=== PATIENT | female | born 1975 | race Caucasian/White ===

== ENCOUNTER 2017-12-05 23:50 | Emergency (ER) | payer BC ==
[2017-12-06] MEDS ORDERED: LACTATED RINGER'S 1000 ML INJ 1,000 ML IV SCH (00:22)
[2017-12-06 00:29] VITALS: BP 149/90; PULSE 100
[2017-12-06] MEDS ORDERED: TERBUTALINE INJ 1 MG/ML AMP SQ PRN (00:30)
--- NOTE | 2017-12-06 00:44 | PD ---
HPI Chief Complaint Contractions Date Seen: Dec 06, 2017 Time Seen: 00:32 Travel History International Travel<30 Days: No Contact w/Intl Traveler<30Days: No Known Affected Area: No History of Present Illness HPI 22-year-old black female previous [address] Eddy for care and complains of contractions that started earlier in the day [ her wedding day] and she presents in her wedding gown to OB ED complaining of contractions and pain, denies bleeding or leakage of fluid. heart rate tracing is reactive and she does appear to. Be duarte small amplitude contractions every 3-4 minutes patient has a history of hypertension with pregnancies she states that it's" superimposed preeclampsia "when she gets it and so therefore she will very likely is a Baseline chronic hypertension that does not require medicine when she is not . Her blood pressure now 140s over 90s and she states that is been lower than that normal through with a check it every time and discuss it when she sees Dr. Eddy. She denies any other symptoms no headache blurry vision visual changes or other symptoms no swelling Weeks Gestation: 29 Para: 2 : 4 History Obstetric History Obstetric History She had 1 vaginal delivery first baby then had a stat with second baby due to distress and she had hypertension with both those pregnancies Past Surgical History Narrative Surgical Social History Narrative Social History Yesterday was her day Alcohol Use: No Tobacco Use: No Substance Abuse: No Allergies-Medications (Allergen,Severity, Reaction): Uncoded Allergies: no known allergy (Allergy, Unknown, 12/06/17) Review of Systems General / Constitutional: No: Fever, Weight Gain, Chills, Other Eyes: No: Diploplia, Blurred Vision, Visual changes, Pain, Photophobia HENT: No: Headaches, Vertigo, Lightheadedness Cardiovascular: No: Irregular Rhythm, Chest Pain or Discomfort, Palpitations, Tachycardia, Syncope, Varicosities, Edema, Cyanosis Respiratory: No: Cough, Short of Breath, Other Gastrointestinal: Abdominal Pain, No: Nausea, Vomiting, Diarrhea Genitourinary: No: Decreased Urinary Output, Oliguria Musculoskeletal: No: Limited ROM, Weakness, Cramping, Edema, Pain Skin: No Rash, No Itching, No Dryness, No Lumps, No Change in Pigmentation, No Change in Nails, No Alopecia, No Lesions Neurologic: No: Weakness, Dizziness, Syncope, Focal Abnormalities, Coordination Problem, Headache, Slurred Speech, Seizures Psychiatric: No: Depression, Suicidal Ideations, Homicidal Ideation Endocrine: No: Heat Intolerance, Cold Intolerance, Polydipsia, Polyuria, Other Physical Exam Narrative GENERAL: Well-nourished, well-developed patient. SKIN: Warm and dry. HEAD: Normocephalic and atraumatic. EYES: No scleral icterus. No injection or drainage. ENT: No nasal drainage noted. Mucous membranes pink. Airway patent. NECK: Supple, trachea midline. No JVD. CARDIOVASCULAR: Regular rate and rhythm without murmurs, gallops, or rubs. RESPIRATORY: Breath sounds equal bilaterally. No accessory muscle use. BREASTS: Bilateral exam showed no masses , no retractions, no nipple discharge. ABDOMEN/GI: Abdomen soft, non-tender, bowel sounds present, no rebound, no guarding Gravid to [-29] weeks size Fundal Height: [29-] GENITOURINARY: External Genitalia: intact and normal in appearance BUS glands: [-] Cervix: [-post] Dilatation: [-closed] Effacement: [thick-] Station: [-3] Membranes: [intact ] Uterine Contractions: [-q 3-4 min] FHT's: Category: [1-] Baseline: [-133] Reactive: [R-] Variability: [mod-] Decels: [-none] EXTREMITIES: No cyanosis or edema. BACK: Nontender without obvious deformity. No CVA tenderness. NEUROLOGICAL: Awake and alert. Motor and sensory grossly within normal limits. Five out of 5 muscle strength in all muscle groups. Normal speech. Data Data Orders Orders Vital Signs (Adult) .ON ADMISSION (12/06/17 00:22) ^ Labor Status (12/06/17:22) Urinalysis - C+S If Indicated (12/06/17:22) ^ Non Stress Test (12/06/17:22) Fibronectin (12/06/17:22) Lactated Ringer's 1000 Ml Inj (Lr 1000 M (12/06/17 00:22) Ob/Psych Drug Screen, Urine (12/06/17:22) Terbutaline Inj (Brethine Inj) (12/06/17 00:30) Fentanyl Inj (Fentanyl Inj) (12/06/17 00:30) MDM Interpretation(s) Patient is a 42-year-old black female at 29 weeks previous 1 who presents complaining of contractions on the day of her wedding she noticed at the human resources operations specialist it was getting worse and her wedding green party made her come to the hospital in her wedding gown. She's had no leakage of fluid or bleeding. She has a history of hypertension with pregnancies :; pressures have been good with this however tonight it's 140 over 90s Diagnosis Diagnosis: Primary Impression: contractions Additional Impressions: Previous section Hypertension affecting in third trimester Disposition: 01 DISCHARGE HOME Condition: Stable Evan Bone II, MD Dec 06, 2017 00:44
[2017-12-06 01:05] LABS: BACTERIA, URINE RARE /hpf; BILIRUBIN, URINE NEG (NEG); BLOOD, URINE NEG (NEG); GLUCOSE,URINE 150 mg/dL (NEG); KETONE, URINE 40 mg/dL (NEG); MUCUS URINE MOD /lpf (OCC); NITRITE,URINE NEG (NEG); SQUAMOUS EPITHELIAL CELL URINE <1 /hpf (0-5); URINE COLOR YELLOW (YELLW/STRAW); URINE LEUKOCYTE ESTERASE NEG (NEG)
[2017-12-06 01:14] VITALS: BP 150/85; PULSE 100; RESP 18
[2017-12-06 01:31] VITALS: BP 141/84; PULSE 96; RESP 18
== END 2017-12-06 02:53 | disposition home or self-care (01) ==
LOC: HOBED 23:50
DX: O47.03 False labor before 37 completed weeks of gestation, third trimester (principal); O16.3 Unspecified maternal hypertension, third trimester; Z3A.29 29 weeks gestation of pregnancy
CPT/HCPCS: 80307; 81001; 82731; 96372; 96374; 99284; G0481; J3010; J3105; J7120

== ENCOUNTER 2017-12-14 09:51 | Inpatient (IN) | payer BC ==
[2017-12-14] VITALS (73 sets, daily range): BP systolic 124–173; BP diastolic 71–108; PULSE 77–117; RESP 16–18; TEMP 98.1–98.5
[~2017-12-14] VITALS: Ht 157.5 cm; Wt 75.0 kg
[2017-12-14] MEDS ORDERED: CALCIUM GLUCONATE 10% 1 GM/10 ML VIAL IV PUSH PRN (10:30)
[2017-12-14] MEDS ORDERED: SODIUM CHLORIDE 0.9% FLUSH 10 ML FLUSH IV FLUSH PRN (10:30)
--- NOTE | 2017-12-14 10:37 | HHI.HP ---
HPI Chief Complaint Severe headache high blood pressure Date Seen: Dec 14, 2017 Time Seen: 10:30 Travel History International Travel<30 Days: No Contact w/Intl Traveler<30Days: No Known Affected Area: No History of Present Illness HPI 42-year-old black female previous 2 and [address] Eddy for care and was sent over to OB ED by Dr. De La Paz after noting severe headache and high blood pressure. Blood pressure on OB ED is 170/109 160/108, she is 1-2+ proteinuria and urine, and she is complaining of swelling in her hands but not is really seen today no significant pretibial edema, baby is active heart rate tracing is reactive and no contractions Weeks Gestation: 30 Para: 2 : 4 Miscarriage: 1 History Obstetric History Obstetric History 2 previous C-sections both preeclampsia first one at 37 weeks second one at 34 weeks Past Surgical History Narrative Surgical 2 C-sections Social History Alcohol Use: No Tobacco Use: No Substance Abuse: No Allergies-Medications (Allergen,Severity, Reaction): Uncoded Allergies: no known allergy (Allergy, Unknown, 12/06/17) Review of Systems General / Constitutional: No: Fever, Weight Gain, Chills, Other Eyes: No: Diploplia, Blurred Vision, Visual changes, Pain, Photophobia HENT: Headaches, No: Vertigo, Lightheadedness Cardiovascular: No: Irregular Rhythm, Chest Pain or Discomfort, Palpitations, Tachycardia, Syncope, Varicosities, Edema, Cyanosis Respiratory: No: Cough, Short of Breath, Other Gastrointestinal: No: Nausea, Vomiting, Diarrhea Genitourinary: No: Decreased Urinary Output, Oliguria Musculoskeletal: No: Limited ROM, Weakness, Cramping, Edema, Pain Skin: No Rash, No Itching, No Dryness, No Lumps, No Change in Pigmentation, No Change in Nails, No Alopecia, No Lesions Neurologic: No: Weakness, Dizziness, Syncope, Focal Abnormalities, Coordination Problem, Headache, Slurred Speech, Seizures Psychiatric: No: Depression, Suicidal Ideations, Homicidal Ideation Endocrine: No: Heat Intolerance, Cold Intolerance, Polydipsia, Polyuria, Other Physical Exam Narrative GENERAL: Well-nourished, well-developed patient. SKIN: Warm and dry. HEAD: Normocephalic and atraumatic. EYES: No scleral icterus. No injection or drainage. ENT: No nasal drainage noted. Mucous membranes pink. Airway patent. NECK: Supple, trachea midline. No JVD. CARDIOVASCULAR: Regular rate and rhythm without murmurs, gallops, or rubs. RESPIRATORY: Breath sounds equal bilaterally. No accessory muscle use. BREASTS: Bilateral exam showed no masses , no retractions, no nipple discharge. ABDOMEN/GI: Abdomen soft, non-tender, bowel sounds present, no rebound, no guarding Gravid to [30-] weeks size Fundal Height: [-30] Membranes: [intact ] Uterine Contractions: [none-] FHT's: Category: [1-] Baseline: [-133] Reactive: [R-] Variability: [mod-] Decels: [none-] EXTREMITIES: No cyanosis or edema. BACK: Nontender without obvious deformity. No CVA tenderness. NEUROLOGICAL: Awake and alert. Motor and sensory grossly within normal limits. Five out of 5 muscle strength in all muscle groups. Normal speech.DTRs1+ Caprini VTE Risk Assessment Caprini VTE Risk Assessment: No/Low Risk (score <= 1) Caprini Risk Assessment Model Point Value = 1 Point Value = 2 Point Value = 3 Point Value = 5 Age 41-60 Minor surgery BMI > 25 kg/m2 Swollen legs Varicose veins or History of unexplained or recurrent spontaneous Oral contraceptives or hormone replacement Sepsis (< 1 month) Serious lung disease, including pneumonia (< 1 month) Abnormal pulmonary function Acute myocardial infarction Congestive heart failure (< 1 month) History of inflammatory bowel disease Medical patient at bed rest Age 61-74 Arthroscopic surgery Major open surgery (> 45 min) Laparoscopic surgery (> 45 min) Malignancy Confined to bed (> 72 hours) Immobilizing plaster cast Central venous access Age >= 75 History of VTE Family history of VTE Factor V Leiden Prothrombin [id number] Lupus anticoagulant Anticardiolipin antibodies Elevated serum homocysteine Heparin-induced thrombocytopenia Other congenital or acquired thrombophilia Stroke (< 1 month) Elective arthroplasty Hip, pelvis, or leg fracture Acute spinal cord injury (< 1 month) Prophylaxis Regimen Total Risk Factor Score Risk Level Prophylaxis Regimen 0-1 Low Early ambulation 2 Moderate Order ONE of the following: *Sequential Compression Device (SCD) *Heparin 5000 units SQ BID 3-4 Higher Order ONE of the following medications: *Heparin 5000 units SQ TID *Enoxaparin/Lovenox 40 mg SQ daily (WT < 150 kg, CrCl > 30 mL/min) *Enoxaparin/Lovenox 30 mg SQ daily (WT < 150 kg, CrCl > 10-29 mL/min) *Enoxaparin/Lovenox 30 mg SQ BID (WT < 150 kg, CrCl > 30 mL/min) AND/OR *Sequential Compression Device (SCD) 5 or more Highest Order ONE of the following medications: *Heparin 5000 units SQ TID (Preferred with Epidurals) *Enoxaparin/Lovenox 40 mg SQ daily (WT < 150 kg, CrCl > 30 mL/min) *Enoxaparin/Lovenox 30 mg SQ daily (WT < 150 kg, CrCl > 10-29 mL/min) *Enoxaparin/Lovenox 30 mg SQ BID (WT < 150 kg, CrCl > 30 mL/min) AND *Sequential Compression Device (SCD) Data Data Orders Orders Place In Observation (12/14/17 ) Vital Signs (Adult) Q5MX4,Q15MX4,Q30MX2,Q1H (12/14/17 10:16) Activity Bed Rest (12/14/17 10:16) Intake + Output Q1H (12/14/17 10:16) Notify Parameters (12/14/17 10:16) Heart CONTINUOUS (12/14/17 10:16) ^ Check Deep Tendon Reflexes Q1H (12/14/17 10:16) Lactated Ringer's 1000 Ml Inj (Lr 1000 M (12/14/17 10:16) Sodium Chloride 0.9% Flush (Ns Flush) (12/14/17 10:30) Sodium Chloride 0.9% Flush (Ns Flush) (12/14/17 21:00) Nifedipine (Procardia) (12/14/17 10:30) Nifedipine (Procardia) (12/14/17 10:45) Betamethasone Inj (Celestone Soluspan In (12/14/17 10:30) Calcium Gluconate Inj (Calcium Gluconate (12/14/17 10:30) Acetaminophen (Tylenol) (12/14/17 10:30) Ondansetron Inj (Zofran Inj) (12/14/17 10:30) Zolpidem (Ambien) (12/14/17 10:30) Cbc No Diff, Includes Plts (12/14/17 10:16) Comprehensive Metabolic Panel (12/14/17 10:16) Uric Acid (12/14/17 10:16) Urinalysis - C+S If Indicated (12/14/17 10:16) Total Protein 24hr Urine (12/14/17 10:16) Creatinine 24 Hr Urine (12/14/17 10:16) Us Ob Bpp Wo Nst (12/14/17 10:16) Morphine Inj (Morphine Inj) (12/14/17 10:30) Assessment/Plan Assessment and Plan Patient 42-year-old black female previous 2 now 30 weeks gestation in a patient of [facility] presents now with severe frontal headache for 2 days today much worse than yesterday but denies visual changes lites or flashing in her eyes denies right upper quadrant pain denies swelling in her legs but has noted some in her hands. She's had no vaginal bleeding or leakage of fluid. Baby is active. heart rate tracing is reactive and no contractions. Blood pressures here 160- 170/100 -110, she has 1-2+ proteinuria and severe features such as severe frontal headache at this time Impression-preeclampsia 30 weeks gestation with severe features[headache] Plan-admit to hospital for observation, blood pressure control, 24-hour urine collection, PIH lab and obstetric ultrasound which will all be coordinated by her OB provider from the [facility] Evan Bone II, MD Dec 14, 2017 10:37
[2017-12-14] MEDS ORDERED: NIFEdipine 10 MG CAP PO PRN ×2 (11:00)
[2017-12-14 11:06] LABS: BACTERIA, URINE RARE /hpf; BILIRUBIN, URINE NEG (NEG); BLOOD, URINE NEG (NEG); GLUCOSE,URINE 70 mg/dL (NEG); KETONE, URINE NEG (NEG); MUCUS URINE FEW /lpf (OCC); NITRITE,URINE NEG (NEG); PH, URINE 8.5 (5.0-8.5); SQUAMOUS EPITHELIAL CELL URINE 6 /hpf (0-5); URINE COLOR YELLOW (YELLW/STRAW); URINE LEUKOCYTE ESTERASE NEG (NEG)
[2017-12-14 11:14] LABS: HEMATOCRIT 25.4 % (35.0-46.0); HEMOGLOBIN 7.9 GM/DL (11.6-15.3); MEAN CELL VOLUME 71.7 FL (80.0-100.0); MEAN CORPUSCULAR HEMOGLOBIN 22.2 PG (27.0-34.0); MEAN PLATELET VOLUME 8.5 FL (7.0-11.0); PLATELET COUNT 344 TH/MM3 (150-450); RED BLOOD COUNT 3.55 MIL/MM3 (4.00-5.30); RED CELL DISTRIBUTION WIDTH 20.9 % (11.6-17.2); WHITE BLOOD COUNT 6.7 TH/MM3 (4.0-11.0)
[2017-12-14] MEDS: LACTATED RINGER'S 1000 ML INJ 1,000 ML IV SCH ×2 (11:45→18:28)
[2017-12-14] MEDS: BETAMETHASONE SOD PHOS/ACETATE SUSP 30 MG/5 ML VIAL IM SCH (11:45)
[2017-12-14] MEDS: MORPHINE SULFATE 4 MG/ML INJ IV PUSH PRN ×2 (11:45→15:42)
[2017-12-14 11:46] LABS: ALBUMIN 2.3 GM/DL (3.4-5.0); AST (GOT) 15 U/L (15-37); BICARBONATE 24.6 MEQ/L (21.0-32.0); BLOOD UREA NITROGEN 5 MG/DL (7-18); CALCIUM 7.5 MG/DL (8.5-10.1); CHLORIDE 109 MEQ/L (98-107); CREATININE 0.49 MG/DL (0.50-1.00); GLOMERULAR FILTRATION RATE 140 ML/MIN (>89); GLUCOSE,RANDOM 83 MG/DL (74-106); SODIUM (NA) 141 MEQ/L (136-145)
[2017-12-14 11:49] LABS: ALKALINE PHOSPHATASE 147 U/L (45-117); ALT (GPT) 12 U/L (10-53); TOTAL BILIRUBIN ADULT 0.1 MG/DL (0.2-1.0); TOTAL PROTEIN 6.7 GM/DL (6.4-8.2)
[2017-12-14] MEDS ORDERED: ZOLPIDEM TARTRATE 5 MG TAB PO PRN (12:00)
[2017-12-14] MEDS ORDERED: ONDANSETRON HCL 4 MG/2 ML VIAL IV PUSH PRN (12:00)
[2017-12-14] MEDS: ACETAMINOPHEN 325 MG TAB PO PRN (13:54)
[2017-12-14] MEDS ORDERED: INSULIN HUMAN NPH 1,000 UNITS/10 ML VIAL SQ ONE (16:45)
[2017-12-14] MEDS ORDERED: ACETAMIN 325 MG/BUTALBITAL 50 MG/CAFFEINE 40 MG TAB PO PRN (16:45)
[2017-12-14] MEDS: LABETALOL HCL 200 MG TAB PO SCH (16:48)
[2017-12-14] MEDS ORDERED: Prenatal Vitamin PO (17:18)
[2017-12-14] MEDS ORDERED: PREN29TA PO (17:18)
[2017-12-14] MEDS ORDERED: Iron PO (17:19)
[2017-12-14] MEDS ORDERED: GLUCAGON 1 MG/ML VIAL OTHER PRN (17:30)
[2017-12-14] MEDS ORDERED: DEXTROSE 50% IN WATER 50 ML VIAL(D50) IV PUSH PRN (17:30)
[2017-12-14] MEDS: MEDIUM DOSE INSULIN NOVOLIN REGULAR SUPPLEMENTAL SCALE SQ SCH ×2 (20:13→22:00)
[2017-12-14] MEDS: SODIUM CHLORIDE 0.9% FLUSH 10 ML FLUSH IV FLUSH SCH (20:33)
[2017-12-15] VITALS (121 sets, daily range): BP systolic 121–151; BP diastolic 67–94; PULSE 82–134; RESP 16–20; TEMP 97.3–99.3; O2SAT 97–99
[2017-12-15] MEDS: ACETAMINOPHEN 325 MG TAB PO PRN ×2 (01:03→16:32)
[2017-12-15] MEDS: LACTATED RINGER'S 1000 ML INJ 1,000 ML IV SCH ×2 (05:13→14:40)
[2017-12-15] MEDS: LABETALOL HCL 200 MG TAB PO SCH ×2 (05:13→18:39)
[2017-12-15 06:00] LABS: AUTOMATED NEUTROPHIL # 8.7 TH/MM3 (1.8-7.7); BASOPHIL % 0.2 % (0.0-2.0); HEMOGLOBIN 7.5 GM/DL (11.6-15.3); LYMPH % 9.4 % (9.0-44.0); MEAN CORPUSCULAR HEMOGLOBIN 23.6 PG (27.0-34.0); MEAN CORPUSCULAR HGB CONC 32.8 % (32.0-36.0); MONO % 4.9 % (0.0-8.0); MONOCYTE # 0.5 TH/MM3 (0-0.9); NEUT % 85.5 % (16.0-70.0); PLATELET COUNT 354 TH/MM3 (150-450); RED CELL DISTRIBUTION WIDTH 20.8 % (11.6-17.2); WHITE BLOOD COUNT 10.2 TH/MM3 (4.0-11.0)
[2017-12-15 06:22] LABS: BICARBONATE 18.6 MEQ/L (21.0-32.0); BLOOD UREA NITROGEN 6 MG/DL (7-18); CALCIUM 8.3 MG/DL (8.5-10.1); CHLORIDE 110 MEQ/L (98-107); CREATININE 0.59 MG/DL (0.50-1.00); GLOMERULAR FILTRATION RATE 113 ML/MIN (>89); GLUCOSE,RANDOM 118 MG/DL (74-106); SODIUM (NA) 139 MEQ/L (136-145)
[2017-12-15] MEDS: MEDIUM DOSE INSULIN NOVOLIN REGULAR SUPPLEMENTAL SCALE SQ SCH ×2 (06:25→11:42)
--- NOTE | 2017-12-15 08:22 | PD.OB.ANTE ---
Subjective Diagnosis: (1) History of pre-eclampsia Diagnosis: Principal (2) Advanced maternal age in multigravida Diagnosis: Secondary (3) Gestational diabetes Diagnosis: Principal Interval History Good FM, no lof or vb, no ctx. She still has a FERNANDEZ but it is less severe. Denies RUQ pain, blurry vision or seeing spots. Objective Vital Signs Vital Signs Date Time Temp Pulse Resp B/P (MAP) Pulse Ox O2 Delivery O2 Flow Rate FiO2 12/15/17 05:14 98.4 12/15/17 05:13 97 18 137/83 (101) 12/15/17 01:03 98.1 16 12/15/17 01:01 93 138/85 (102) 12/14/17 23:06 98.2 89 16 12/14/17 23:06 143/84 (103) 12/14/17 21:02 16 12/14/17 21:01 88 124/71 (88) 12/14/17 19:14 96 135/90 (105) 12/14/17 19:14 98.1 16 12/14/17 18:31 17 12/14/17 18:30 88 12/14/17 18:25 86 139/84 (102) 12/14/17 18:25 83 12/14/17 18:20 98 12/14/17 18:15 95 12/14/17 18:05 102 12/14/17 18:00 108 12/14/17 17:55 102 12/14/17 17:50 89 12/14/17 17:45 86 12/14/17 17:40 85 12/14/17 17:35 87 12/14/17 17:30 90 12/14/17 17:25 100 12/14/17 17:20 108 12/14/17 17:15 104 12/14/17 17:10 103 12/14/17 17:05 93 12/14/17 17:00 103 12/14/17 16:36 92 150/97 (114) 12/14/17 16:35 90 12/14/17 16:34 17 12/14/17 16:25 87 12/14/17 16:20 77 12/14/17 16:15 97 12/14/17 16:00 108 12/14/17 15:43 17 12/14/17 15:40 93 12/14/17 15:35 84 12/14/17 15:30 89 12/14/17 15:25 82 12/14/17 15:22 92 154/94 (114) 12/14/17 15:10 89 12/14/17 15:05 87 12/14/17 15:00 90 12/14/17 15:00 98.5 17 12/14/17 14:55 86 12/14/17 14:50 89 12/14/17 14:45 90 12/14/17 14:35 85 12/14/17 14:30 92 12/14/17 14:25 110 12/14/17 14:20 86 12/14/17 14:15 93 12/14/17 14:10 100 12/14/17 14:00 92 12/14/17 13:50 99 12/14/17 13:50 91 18 12/14/17 13:50 145/87 (106) 12/14/17 13:45 102 12/14/17 13:40 105 12/14/17 13:35 107 12/14/17 13:30 94 12/14/17 13:25 87 12/14/17 13:20 97 12/14/17 13:15 85 12/14/17 13:05 85 12/14/17 13:00 97 12/14/17 12:55 87 12/14/17 12:50 92 12/14/17 12:45 86 12/14/17 12:30 18 12/14/17 12:20 114 12/14/17 12:15 99 12/14/17 11:45 98.5 17 12/14/17 11:40 104 12/14/17 11:35 113 12/14/17 11:31 104 131/77 (95) 12/14/17 11:30 117 12/14/17 11:30 116 12/14/17 10:31 92 173/95 (121) 12/14/17 10:15 83 168/107 (127) 12/14/17 10:07 78 162/108 (126) Lab & Micro Results Test 12/14/17 10:00 12/14/17 10:30 12/15/17 05:06 Urine Color YELLOW Urine Turbidity CLEAR Urine pH 8.5 Urine Specific [place] 1.019 Urine Protein 100 mg/dL Urine Glucose (UA) 70 mg/dL Urine Ketones NEG mg/dL Urine Occult Blood NEG Urine Nitrite NEG Urine Bilirubin NEG Urine Urobilinogen LESS THAN 2.0 MG/DL Urine Leukocyte Esterase NEG Urine RBC 1 /hpf Urine WBC LESS THAN 1 /hpf Urine Squamous Epithelial Cells 6 /hpf Urine Bacteria RARE /hpf Urine Mucus FEW /lpf Microscopic Urinalysis Comment CULT NOT INDICATED White Blood Count 6.7 TH/MM3 10.2 TH/MM3 Red Blood Count 3.55 MIL/MM3 3.20 MIL/MM3 Hemoglobin 7.9 GM/DL 7.5 GM/DL Hematocrit 25.4 % 23.0 % Mean Corpuscular Volume 71.7 FL 72.0 FL Mean Corpuscular Hemoglobin 22.2 PG 23.6 PG Mean Corpuscular Hemoglobin Concent 31.0 % 32.8 % Red Cell Distribution Width 20.9 % 20.8 % Platelet Count 344 TH/MM3 354 TH/MM3 Mean Platelet Volume 8.5 FL 9.0 FL Blood Urea Nitrogen 5 MG/DL 6 MG/DL Creatinine 0.49 MG/DL 0.59 MG/DL Random Glucose 83 MG/DL 118 MG/DL Total Protein 6.7 GM/DL Albumin 2.3 GM/DL Calcium Level 7.5 MG/DL 8.3 MG/DL Uric Acid 2.9 MG/DL Alkaline Phosphatase 147 U/L Aspartate Amino Transf (AST/SGOT) 15 U/L Alanine Aminotransferase (ALT/SGPT) 12 U/L Total Bilirubin 0.1 MG/DL Sodium Level 141 MEQ/L 139 MEQ/L Potassium Level 3.5 MEQ/L 4.0 MEQ/L Chloride Level 109 MEQ/L 110 MEQ/L Carbon Dioxide Level 24.6 MEQ/L 18.6 MEQ/L Anion Gap 7 MEQ/L 10 MEQ/L Estimat Glomerular Filtration Rate 140 ML/MIN 113 ML/MIN Neutrophils (%) (Auto) 85.5 % Lymphocytes (%) (Auto) 9.4 % Monocytes (%) (Auto) 4.9 % Eosinophils (%) (Auto) 0.0 % Basophils (%) (Auto) 0.2 % Neutrophils # (Auto) 8.7 TH/MM3 Lymphocytes # (Auto) 1.0 TH/MM3 Monocytes # (Auto) 0.5 TH/MM3 Eosinophils # (Auto) 0.0 TH/MM3 Basophils # (Auto) 0.0 TH/MM3 CBC Comment DIFF FINAL Differential Comment Physical Exam GENERAL: Well-nourished, well-developed patient. CARDIOVASCULAR: Regular rate and rhythm without murmurs, gallops, or rubs. RESPIRATORY: Breath sounds equal bilaterally. No accessory muscle use. ABDOMEN/GI: Abdomen soft, non-tender. Fundus:30, nontender GENITOURINARY: External Genitalia: intact and normal in appearance Cervix: defer Dilatation: [-] FHT's: Category: I BPP 8/8 yesterday EXTREMITIES: No cyanosis or edema, non-tender, without signs of DVT. Reflexes 3 + UE and lower extremities, no clonus Assessment and Plan Assessment and Plan Patient 42-year-old black female previous 2 now 30 weeks IUP 1) Pre-eclampsia- 24 hour urine with 500+mg, she is having hyper-reflexia. Will start magnesium now for seizure prophylaxis and for neuroprotection, discussed likely delivery within 24 hours. 2) GDM- ada diet, insulin initiated as sliding scale. Will check q 2 hours as she will be npo 3) Fetus- bms given yesterday at noon, repeat today. 4) UDS + for bupenorphine, oxycodone, and hydromorphone on 12/06/17. Will send uds again 5) Anemia- discussed possible transfusion prior to CD as she has hgb of 7; she will discuss with and see if she wants prior to surgery or wait after surgery if she is symptomatic. Discussed impaired wound healing with low hgb and DM. 6) UDF- desires BTL. Annie Pulido MD Dec 15, 2017 08:22
[2017-12-15] MEDS: SODIUM CHLORIDE 0.9% FLUSH 10 ML FLUSH IV FLUSH SCH (09:00)
[2017-12-15] MEDS ORDERED: INSULIN HUMAN REGULAR 1,000 UNITS/10 ML VIAL SQ ONE (09:15)
[2017-12-15] MEDS ORDERED: INFLUENZA VIRUS VACCINE (QUADRIVALENT) 0.5 ML SYR IM ONE (10:00)
[2017-12-15] MEDS: BETAMETHASONE SOD PHOS/ACETATE SUSP 30 MG/5 ML VIAL IM SCH (11:56)
[2017-12-15] MEDS ORDERED: GLUCAGON 1 MG/ML VIAL IM PRN (12:15)
[2017-12-15] MEDS ORDERED: DEXTROSE 50% IN WATER 50 ML VIAL(D50) IV PUSH PRN (12:15)
[2017-12-15 12:28] LABS: CREATININE 24 HOUR, URINE 1.39 GM/24HR (0.63-2.50)
[2017-12-15] MEDS ORDERED: LACTATED RINGER'S 1000 ML INJ 1,000 ML IV SCH (12:44)
[2017-12-15] MEDS ORDERED: CALCIUM GLUCONATE 10% 1 GM/10 ML VIAL IV PUSH PRN (12:45)
[2017-12-15] MEDS ORDERED: MAGNESIUM SULFATE 4 GM PREMIX 100 ML IV ONE (12:45)
[2017-12-15 13:45] LABS: ALBUMIN 2.3 GM/DL (3.4-5.0)
[2017-12-15] MEDS: MAGNESIUM SULFATE 40 GM PREMIX 1,000 ML IV SCH (13:50)
[2017-12-15 13:57] LABS: ALKALINE PHOSPHATASE 141 U/L (45-117); ALT (GPT) 11 U/L (10-53); AST (GOT) 17 U/L (15-37); TOTAL BILIRUBIN ADULT 0.2 MG/DL (0.2-1.0); TOTAL PROTEIN 6.7 GM/DL (6.4-8.2)
[2017-12-15] MEDS ORDERED: INSULIN NovoLIN REGULAR SUPPLEMENTAL SCALE SQ SCH (17:00)
[2017-12-15] MEDS: INSULIN NovoLIN REGULAR SUPPLEMENTAL SCALE SQ SCH ×3 (17:38→22:49)
[2017-12-15] MEDS ORDERED: ACETAMINOPHEN 325 MG TAB PO PRN (18:15)
[2017-12-15] MEDS ORDERED: diphenhydrAMINE HCL 25 MG CAP PO PRN (18:15)
[2017-12-15] MEDS ORDERED: SODIUM CHLOR 0.9% 250 ML INJ 250 ML IV ONE (18:15)
--- NOTE | 2017-12-15 20:24 | HHI.PR ---
Addendum to Inpatient Note Addendum Reason: Additional Documentation Additional Information Consult Maternal Hx: 42 y/o, , male/female at 30 weeks gestation with diagnosis of Pre- Eclampsia, Gestational Diabetes (newly diagnosed), Advanced Maternal Age Mother admitted to [facility] & [facility] on 12/14/17, secondary to high blood pressure and headache. Maternal Labs: Blood type O+ Maternal Medications: Magnesium Sulfate, PNV, Insulin, Betamethasone on 12/14 and 12/15 Social: Marital status: Family Hx: Other children healthy. One born at 37 weeks the other at 34 weeks (spent 20 days in NICU in [facility]). Denies family history of genetic or inherited disorders Substance Abuse: 12/06/17 Tox Screen positive for Subutex, Oxycodone, and Hydromorphone. Repeat is pending. Mother denies. Discussion: Nurse practitioner met with mother and father to discuss pending delivery on 12/16 given maternal diagnosis of pre-eclampsia. This consultation included generalized care of the baby in the NICU, common problems, complications, and survival if delivered at this time. Parents were informed that infant would likely need assistance with breathing at delivery secondary to immaturity of the lungs and may need surfactant administration. Mom plans to provide breast milk and she was encouraged to start pumping as soon as possible after delivery - will need to discuss tox screen results and follow meconium tox screen. Discussed Donor Breast Milk and parents are agreeable. Parents were informed that infant would require PIV placement and IVF while feeds were gradually advanced. They were also told that sometimes central line placement is required if feeds are not well tolerated and IVF need to be continued for an extended period of time. Infection risk is low at this time with membranes intact and potential delivery for maternal indication but parents are aware that antibiotics may be required depending on the remaining course of the and delivery. Jaundice was discussed and that infant may require treatment with phototherapy. The NICU course was further discussed with timelines of initially being fed via tube and transitioning to oral feeding skills, initial need for isolette and subsequent transition to an open crib, achieving appropriate weight gain, and ceasing apnea and bradycardia spells prior to discharge. Parents were informed of open NICU visitation policy and encouraged to participate in infants care as much as possible. Parents were also made aware of daily multidisciplinary rounds and encouraged to be present. Parents verbalized understanding of information and asked appropriate questions which were answered. Parents were encouraged to request a return visit if additional questions arise. Family was given [facility] written materials regarding development, NICU environment, and common procedures/equipment that they will review prior to tomorrow. Consult was 60 minutes in length. Greater than 50% of the consultation time was spent with the patient. Jazmin Palomo Dec 15, 2017 20:24
[2017-12-16] VITALS (105 sets, daily range): BP systolic 121–184; BP diastolic 69–111; PULSE 64–96; RESP 15–18; TEMP 97.3–97.9; O2SAT 96–100
[2017-12-16] MEDS: INSULIN NovoLIN REGULAR SUPPLEMENTAL SCALE SQ SCH ×4 (02:00→06:00)
[2017-12-16] MEDS: LACTATED RINGER'S 1000 ML INJ 1,000 ML IV SCH ×2 (04:00→16:59)
[2017-12-16] MEDS ORDERED: CITRIC ACID-SODIUM CITRATE LIQ 30 ML UDC PO SCH (04:15)
[2017-12-16] MEDS ORDERED: ceFAZolin 2 GM PREMIX 50 ML IV SCH (04:15)
[2017-12-16] MEDS: LABETALOL HCL 200 MG TAB PO SCH ×2 (05:00→17:18)
[2017-12-16 05:58] LABS: HEMATOCRIT 30.4 % (35.0-46.0); HEMOGLOBIN 9.4 GM/DL (11.6-15.3); MEAN CELL VOLUME 75.1 FL (80.0-100.0); MEAN CORPUSCULAR HEMOGLOBIN 23.3 PG (27.0-34.0); MEAN PLATELET VOLUME 8.9 FL (7.0-11.0); PLATELET COUNT 330 TH/MM3 (150-450); RED BLOOD COUNT 4.05 MIL/MM3 (4.00-5.30); RED CELL DISTRIBUTION WIDTH 21.5 % (11.6-17.2); WHITE BLOOD COUNT 11.3 TH/MM3 (4.0-11.0)
[2017-12-16] MEDS ORDERED: LACTATED RINGER'S 1000 ML IV ONE (06:00)
[2017-12-16] MEDS ORDERED: LACTATED RINGER'S 1000 ML IV SCH (06:00)
[2017-12-16 06:27] LABS: ALBUMIN 2.3 GM/DL (3.4-5.0); BICARBONATE 16.9 MEQ/L (21.0-32.0); CALCIUM 6.7 MG/DL (8.5-10.1); CREATININE 0.49 MG/DL (0.50-1.00)
[2017-12-16 06:31] LABS: TOTAL BILIRUBIN ADULT 0.3 MG/DL (0.2-1.0); TOTAL PROTEIN 6.7 GM/DL (6.4-8.2)
[2017-12-16 06:34] LABS: CALCIUM-PROTEIN CORRECTED 6.9 MG/DL (8.5-10.1)
[2017-12-16] MEDS ORDERED: MORPHINE SULFATE PF 5 MG/10 ML VIAL ONE (07:09)
[2017-12-16] MEDS ORDERED: EPIDURAL-DIPHENHYDRAMINE HCL 50 MG/ML VIAL IV PUSH PRN (07:50)
[2017-12-16] MEDS ORDERED: EPIDURAL-DIPHENHYDRAMINE HCL 50 MG CAP PO PRN (07:50)
[2017-12-16] MEDS ORDERED: EPIDURAL-DO NOT ADMINISTER ANTICOAGULANTS PRN (07:50)
[2017-12-16] MEDS ORDERED: EPIDURAL-NO SYSTEMIC NARCOTICS PRN (07:50)
[2017-12-16] MEDS ORDERED: EPIDURAL-NALOXONE HCL 0.4 MG/ML AMP IV PUSH PRN (07:50)
[2017-12-16] MEDS ORDERED: ACETAMINOPHEN 325 MG TAB PO PRN (09:15)
[2017-12-16] MEDS ORDERED: SIMETHICONE 80 MG CHEWABLE TAB PO PRN (09:15)
[2017-12-16] MEDS ORDERED: ZOLPIDEM TARTRATE 5 MG TAB PO PRN (09:15)
[2017-12-16] MEDS ORDERED: OXYTOCIN 30 UNITS-500ML PREMIX 500 ML IV ONE (09:15)
[2017-12-16] MEDS ORDERED: ONDANSETRON HCL 4 MG/2 ML VIAL IV PUSH PRN (09:15)
--- NOTE | 2017-12-16 09:15 | PD.OB.DELI ---
Procedure Note Section Procedure Pre Op Diagnosis: (1) Encounter for sterilization (2) Severe pre-eclampsia (3) Advanced maternal age in multigravida (4) Fibroid uterus (5) Gestational diabetes (6) History of delivery Post Op Diagnosis: (1) Encounter for sterilization (2) Severe pre-eclampsia (3) Advanced maternal age in multigravida (4) Fibroid uterus (5) Gestational diabetes Performed by Annie Pulido Procedure: Repeat Low Transverse Sec, Other (BTL and myomectomy) Indication for delivery: Desired elective repeat Previous condition: None Informed consent obtained: For anesthesia, For procedure Confirmed correct: Patient, Procedure, Site, Time-out taken Anesthesia: Spinal Medication prior to procedure: As documented in eMAR Monitoring during procedure: Blood pressure monitoring, Pulse oximetry Urinary catheter: ml urine output (200), Other (previously inserted) Sterile preparation: With 2% chlorexidine (Hibiclens) Position: Supine with wedge to right side, Supine with safety belt applied Operative Features Skin Incision: Pfannenstiel Uterine Incision: Low transverse w/knife / scissors Membranes Ruptured: Appearance of fluid (clear) Presentation: Occiput anterior Delivery date: Dec 16, 2017 Delivery time: 08:19 Delivery of infant: Uneventful Infant: Female One Minute : 7 Five Minute : 9 Weight: pending Status of : Viable, Cord blood, Nursery present, Resuscitation required ( PPV ) Placenta delivered: Intact, Sent to pathology Medications: Antibiotics, Oxytocin Estimated blood loss: 750ml Procedure tolerated: Well Maternal Condition: Stable Condition: Fair, Other (to [facility]UC for prematurity) Procedure in detail Intraoperative findings: multiple 2cm fibroids on all aspects of uterus. 4 cm left fundal pedunculated fibroid. Myomectomy of 4 fibroids adjacent to hysterotomy to ensure good approximation and hemostasis. Nina GALEANO performed. Annie Pulido MD Dec 16, 2017 09:15
[2017-12-16] MEDS ORDERED: ACETAMINOPHEN 1000 MG/100 ML 100 ML IV ONE ×2 (09:36→10:00)
[2017-12-16] MEDS ORDERED: LABETALOL HCL 100 MG/20 ML VIAL ONE (09:42)
[2017-12-16] MEDS ORDERED: OXYTOCIN 30 UNITS-500ML PREMIX 500 ML ONE (10:42)
[2017-12-16] MEDS ORDERED: LABETALOL HCL 100 MG/20 ML VIAL IV PUSH ONE ×2 (12:15)
[2017-12-16] MEDS: NIFEdipine 30 MG SUSTAINED RELEASE TAB PO SCH (12:17)
[2017-12-16] MEDS: MAGNESIUM SULFATE 40 GM PREMIX 1,000 ML IV SCH (13:21)
[2017-12-16] MEDS ORDERED: LABETALOL HCL 100 MG/20 ML VIAL IV PUSH PRN ×3 (15:30→15:45)
[2017-12-16] MEDS: oxyCODONE/ACETAMINOPHEN 5 MG/325 MG TAB PO PRN (18:49)
[2017-12-16] MEDS ORDERED: OXYTOCIN 30 UNITS-500ML PREMIX 500 ML IV PRN (19:15)
[2017-12-17] VITALS (11 sets, daily range): BP systolic 131–156; BP diastolic 80–97; PULSE 69–87; RESP 1–18; TEMP 97.9–98.5
[2017-12-17] MEDS: oxyCODONE/ACETAMINOPHEN 5 MG/325 MG TAB PO PRN ×4 (01:40→20:24)
[2017-12-17] MEDS: IBUPROFEN 600 MG TAB PO PRN ×3 (01:40→20:24)
[2017-12-17] MEDS: LABETALOL HCL 200 MG TAB PO SCH ×2 (04:51→17:55)
[2017-12-17] MEDS: LACTATED RINGER'S 1000 ML INJ 1,000 ML IV SCH (06:00)
[2017-12-17 06:11] LABS: AUTOMATED NEUTROPHIL # 12.5 TH/MM3 (1.8-7.7); BASOPHIL % 0.3 % (0.0-2.0); HEMATOCRIT 26.2 % (35.0-46.0); HEMOGLOBIN 8.6 GM/DL (11.6-15.3); LYMPH % 8.9 % (9.0-44.0); LYMPHOCYTE # 1.3 TH/MM3 (1.0-4.8); MEAN CELL VOLUME 73.6 FL (80.0-100.0); MEAN CORPUSCULAR HEMOGLOBIN 24.1 PG (27.0-34.0); MEAN CORPUSCULAR HGB CONC 32.8 % (32.0-36.0); MEAN PLATELET VOLUME 8.3 FL (7.0-11.0); MONO % 6.5 % (0.0-8.0); NEUT % 84.3 % (16.0-70.0); PLATELET COUNT 279 TH/MM3 (150-450); RED BLOOD COUNT 3.55 MIL/MM3 (4.00-5.30); RED CELL DISTRIBUTION WIDTH 21.5 % (11.6-17.2); WHITE BLOOD COUNT 14.9 TH/MM3 (4.0-11.0)
[2017-12-17 06:25] LABS: ALBUMIN 2.1 GM/DL (3.4-5.0); BICARBONATE 23.3 MEQ/L (21.0-32.0); CALCIUM 6.2 MG/DL (8.5-10.1); CREATININE 0.47 MG/DL (0.50-1.00); TOTAL BILIRUBIN ADULT 0.2 MG/DL (0.2-1.0)
[2017-12-17 06:27] LABS: CALCIUM-PROTEIN CORRECTED 6.7 MG/DL (8.5-10.1)
[2017-12-17] MEDS: NIFEdipine 30 MG SUSTAINED RELEASE TAB PO SCH (08:37)
[2017-12-17] MEDS: CALCIUM CARBONATE 1.25 GM (CA 500 MG) TAB PO SCH (10:54)
--- NOTE | 2017-12-17 11:28 | HHI.OB ---
Subjective Post Operative Day: 1 Remarks Patient did well, denies headache, blurred vision, epigastric pain, angina, voiding, pain controlled, Vaginal bleeding last cycle, having some cough, feels congested, no shortness of breath. Objective Vitals/I&O Vital Signs Date Time Temp Pulse Resp B/P (MAP) Pulse Ox O2 Delivery O2 Flow Rate FiO2 12/17/17 08:21 72 156/90 (112) 12/17/17 07:00 87 131/89 (103) 12/17/17 06:00 16 12/17/17 06:00 84 141/83 (102) 12/17/17 05:00 69 140/83 (102) 12/17/17 04:00 86 145/84 (104) 12/17/17 03:00 79 132/80 (97) 12/17/17 02:00 97.9 85 137/81 (99) 12/17/17 01:00 18 12/17/17 01:00 70 156/87 (110) 12/17/17 01:00 1 12/17/17 01:00 16 12/17/17 00:00 73 150/89 (109) 12/16/17 23:00 76 147/94 (111) 12/16/17 23:00 97.9 18 12/16/17 22:00 69 157/89 (111) 12/16/17 21:00 71 138/85 (102) 12/16/17 20:50 18 12/16/17 20:00 76 142/85 (104) 12/16/17 19:30 97.8 16 12/16/17 19:00 73 144/85 (104) 12/16/17 18:42 18 12/16/17 18:00 75 147/85 (105) 12/16/17 17:01 76 139/82 (101) 12/16/17 16:00 97.3 12/16/17 16:00 81 156/91 (112) 12/16/17 15:53 77 155/87 (109) 12/16/17 15:09 77 164/93 (116) 12/16/17 15:06 96 162/111 (128) 12/16/17 15:00 81 155/88 (110) 12/16/17 14:54 75 154/86 (108) 12/16/17 13:00 73 155/82 (106) 12/16/17 12:13 72 156/90 (112) 12/16/17 12:00 70 148/83 (104) Result Diagram: 12/17/17 0506 12/17/17 0506 Objective Remarks GENERAL: Well-nourished, well-developed patient. CARDIOVASCULAR: Regular rate and rhythm without murmurs, gallops, or rubs. RESPIRATORY: Breath sounds equal bilaterally. No accessory muscle use. ABDOMEN/GI: Abdomen soft, non-tender, bowel sounds present. bandage: Clean, dry and intact. Fundus: Firm, non-tender at umbilicus. GENITOURINARY: Light to moderate bleeding. EXTREMITIES: No cyanosis or edema, non-tender, without signs of DVT. Medications and IVs Current Medications Medications (Trade) Dose Ordered Sig/Asher Route Start Time Stop Time Status Last Admin (Fioricet 325-50-40) 1 tab Q6H PRN PO 12/14/17 16:45 (Trandate) 200 mg Q12H PO 12/14/17 17:00 12/17/17 04:51 (Calcium Gluconate Inj) 1 gm UNSCH PRN IV PUSH 12/15/17 12:45 (Bicitra Liq) 30 ml BLOCK ENGRAVER PO 12/16/17 04:15 12/19/17 04:14 12/16/17 07:24 Oxytocin 500 ml @ 100 mls/hr UNSCH X1 PRN IV 12/16/17 19:15 12/17/17 19:14 (Mylicon Chew) 80 mg QID PRN PO 12/16/17 09:15 (Tylenol) 650 mg Q6H PRN PO 12/16/17 09:15 (Motrin) 600 mg Q6H PRN PO 12/16/17 09:15 12/17/17 01:40 (Percocet 5-325 Mg) 1 tab Q4H PRN PO 12/16/17 09:15 (Percocet 5-325 Mg) 2 tab Q4H PRN PO 12/16/17 09:15 12/17/17 07:36 (Ethel-Colace) 2 tab Q12H PRN PO 12/16/17 09:15 (Ambien) 5 mg HS PRN PO 12/16/17 09:15 (M-M-R Ii Inj) 0.5 ml ONCE ONCE SQ 12/17/17 16:00 12/17/17 16:01 (Boostrix Inj) 0.5 ml ONCE ONCE IM 12/17/17 16:00 12/17/17 16:01 (Zofran Inj) 4 mg Q6H PRN IV PUSH 12/16/17 09:15 (Procardia Xl) 30 mg DAILY PO 12/16/17 12:30 12/17/17 08:37 (Trandate Inj) 40 mg NOW PRN IV PUSH 12/16/17 15:30 12/17/17 15:29 (Trandate Inj) 80 mg NOW PRN IV PUSH 12/16/17 15:45 12/17/17 15:44 (Oscal) 500 mg DAILY PO 12/17/17 09:00 12/17/17 10:54 Assessment/Plan Problem List: (1) History of pre-eclampsia ICD Codes: Z87.59 - Personal history of other complications of , childbirth and the puerperium (2) Advanced maternal age in multigravida ICD Codes: O09.529 - Supervision of elderly multigravida, unspecified trimester (3) Gestational diabetes ICD Codes: O24.419 - Gestational diabetes mellitus in , unspecified control Assessment and Plan Patient 42 yo AAF s/p RLTCS and BTL / myomectomy at 30w4d for PREC w/ severe features. 1) POD #1: AF, VSS, ouput appropriate, and hemoglobin noted, patient received 2 units prior to her surgery. Feeling well asymptomatic, recommend by mouth iron at discharge and will give IV Fe while in patient. Continue routine post operative care, anticipate discharge in the next 48 hours. 2) GDM: check 2hr GTT at 6 weeks. 3) UDS + for bupenorphine, oxycodone, and hydromorphone on 12/06/17. Pending here. Consult CM. 4) PREC w/ severe features: s/p Mag this AM x 24hrs, BPs mild range on Procardia XL 30mg qd and labetalol 200mg BID, BPs mostly mild range and hovering around severe will increase to 400mg BID. Will need 1 wk FU for BP check s/p d/Daron Winston MD Dec 17, 2017 11:28
[2017-12-17] MEDS ORDERED: IRON SUCROSE INJ 100 MG in SODIUM CHLORIDE 0.9% INJ 100 ML IV ONE (12:30)
[2017-12-17] MEDS ORDERED: BENZONATATE 100 MG CAP PO PRN (13:15)
[2017-12-17] MEDS ORDERED: DIPHTH/TETANUS/ACEL PERTUSSIS (BOOSTER) 0.5 ML VIAL/PFS IM ONE (16:00)
[2017-12-17] MEDS ORDERED: MEASLES, MUMPS, RUBELLA VACCINE 0.5 ML VIAL SQ ONE (16:00)
[2017-12-17] MEDS: DOCUSATE SODIUM 50 MG/SENNA 8.6 MG TAB PO PRN (20:23)
[2017-12-17] MEDS: guaiFENesin E.R. 600 MG TAB PO SCH (21:00)
[2017-12-18] VITALS (9 sets, daily range): BP systolic 135–177; BP diastolic 79–107; PULSE 81–88; RESP 16–20; TEMP 97.9–99.3
[2017-12-18] MEDS: LABETALOL HCL 200 MG TAB PO SCH ×2 (05:34→17:02)
[2017-12-18] MEDS: IBUPROFEN 600 MG TAB PO PRN ×2 (05:34→17:02)
--- NOTE | 2017-12-18 08:19 | HHI.OB ---
Subjective Post Operative Day: 2 Remarks pt doing well, no FERNANDEZ, no BV, no CP, ambulating Objective Vitals/I&O Vital Signs Date Time Temp Pulse Resp B/P (MAP) Pulse Ox O2 Delivery O2 Flow Rate FiO2 12/18/17 05:25 84 16 168/97 (120) 12/18/17 01:00 81 16 136/79 (98) 12/17/17 19:20 98.5 70 12 12/17/17 19:20 151/90 (110) 12/17/17 15:00 154/97 (116) 12/17/17 08:21 72 156/90 (112) Result Diagram: 12/17/17 0506 12/17/17 0506 Objective Remarks GENERAL: Well-nourished, well-developed patient. CARDIOVASCULAR: Regular rate and rhythm without murmurs, gallops, or rubs. RESPIRATORY: Breath sounds equal bilaterally. No accessory muscle use. ABDOMEN/GI: Abdomen soft, non-tender, bowel sounds present. bandage: Clean, dry and intact. Fundus: Firm, non-tender at umbilicus. GENITOURINARY: Light to moderate bleeding. EXTREMITIES: No cyanosis or edema, non-tender, without signs of DVT. Medications and IVs Current Medications Medications (Trade) Dose Ordered Sig/Asher Route Start Time Stop Time Status Last Admin (Fioricet 325-50-40) 1 tab Q6H PRN PO 12/14/17 16:45 (Calcium Gluconate Inj) 1 gm UNSCH PRN IV PUSH 12/15/17 12:45 (Bicitra Liq) 30 ml MEDICAL DEVICE ENGINEER PO 12/16/17 04:15 12/19/17 04:14 12/16/17 07:24 (Mylicon Chew) 80 mg QID PRN PO 12/16/17 09:15 (Tylenol) 650 mg Q6H PRN PO 12/16/17 09:15 (Motrin) 600 mg Q6H PRN PO 12/16/17 09:15 12/18/17 05:34 (Percocet 5-325 Mg) 1 tab Q4H PRN PO 12/16/17 09:15 12/17/17 20:24 (Percocet 5-325 Mg) 2 tab Q4H PRN PO 12/16/17 09:15 12/17/17 07:36 (Ethel-Colace) 2 tab Q12H PRN PO 12/16/17 09:15 12/17/17 20:23 (Ambien) 5 mg HS PRN PO 12/16/17 09:15 (Zofran Inj) 4 mg Q6H PRN IV PUSH 12/16/17 09:15 (Procardia Xl) 30 mg DAILY PO 12/16/17 12:30 12/17/17 08:37 (Oscal) 500 mg DAILY PO 12/17/17 09:00 12/17/17 10:54 (Trandate) 400 mg Q12H PO 12/17/17 17:00 12/18/17 05:34 (Tessalon) 100 mg TID PRN PO 12/17/17 13:15 12/17/17 17:55 (Mucinex Er) 600 mg BID PO 12/17/17 21:00 Assessment/Plan Problem List: (1) History of pre-eclampsia ICD Codes: Z87.59 - Personal history of other complications of , childbirth and the puerperium (2) Advanced maternal age in multigravida ICD Codes: O09.529 - Supervision of elderly multigravida, unspecified trimester (3) Gestational diabetes ICD Codes: O24.419 - Gestational diabetes mellitus in , unspecified control (4) History of delivery ICD Codes: Z98.891 - History of uterine scar from previous surgery Assessment and Plan Patient 42 yo AAF s/p RLTCS and BTL / myomectomy at 30w4d for PREC w/ severe features. 1) POD #2: AF, VSS, ouput appropriate, and hemoglobin noted, patient received 2 units prior to her surgery. Feeling well asymptomatic, recommend by mouth iron at discharge and will give IV Fe while in patient. Continue routine post operative care, anticipate discharge in the next 48 hours. 2) GDM: check 2hr GTT at 6 weeks. 3) UDS + for bupenorphine, oxycodone, and hydromorphone on 12/06/17. Pending here. Consult CM. 4) PREC w/ severe features: s/p Mag x 24hrs, BPs mild range on Procardia XL 30mg qd and labetalol 400mg BID, Will need 1 wk FU for BP check s/p d/c. Discharge Planning routine Attending Attestation pt seen by Tameka Mane MD Dec 18, 2017 08:19
[2017-12-18] MEDS: NIFEdipine 30 MG SUSTAINED RELEASE TAB PO SCH (08:31)
[2017-12-18] MEDS: CALCIUM CARBONATE 1.25 GM (CA 500 MG) TAB PO SCH (08:31)
[2017-12-18] MEDS: oxyCODONE/ACETAMINOPHEN 5 MG/325 MG TAB PO PRN ×3 (08:33→20:38)
[2017-12-18] MEDS: DOCUSATE SODIUM 50 MG/SENNA 8.6 MG TAB PO PRN ×2 (08:33→20:37)
[2017-12-18] MEDS: guaiFENesin E.R. 600 MG TAB PO SCH ×2 (08:33→20:45)
[2017-12-18] MEDS ORDERED: INFLUENZA VIRUS VACCINE (QUADRIVALENT) 0.5 ML SYR IM ONE (10:00)
[2017-12-19 04:00] VITALS: PULSE 61; RESP 16; TEMP 97.9
[2017-12-19] MEDS: IBUPROFEN 600 MG TAB PO PRN ×2 (04:45→12:26)
[2017-12-19] MEDS: LABETALOL HCL 200 MG TAB PO SCH (04:46)
[2017-12-19] MEDS: oxyCODONE/ACETAMINOPHEN 5 MG/325 MG TAB PO PRN ×2 (04:46→12:26)
[2017-12-19] MEDS: NIFEdipine 30 MG SUSTAINED RELEASE TAB PO SCH (07:18)
[2017-12-19 08:00] VITALS: BP 200/103; PULSE 61; RESP 16; TEMP 99
--- NOTE | 2017-12-19 08:36 | HHI.OB ---
Subjective Post Operative Day: 3 Remarks pt has no complaints, BP elevated in AM before she gets her procardia dose Objective Vitals/I&O Vital Signs Date Time Temp Pulse Resp B/P (MAP) Pulse Ox O2 Delivery O2 Flow Rate FiO2 12/19/17 04:00 97.9 61 16 12/18/17 23:45 99.0 83 18 142/95 (111) 12/18/17 20:00 99.3 18 12/18/17 20:00 87 151/99 (116) 12/18/17 18:00 88 16 140/89 (106) 12/18/17 16:30 83 20 177/107 (130) 12/18/17 11:56 99.3 88 136/87 (103) 12/18/17 09:35 135/88 (104) Result Diagram: 12/17/17 0506 12/17/17 0506 Objective Remarks GENERAL: Well-nourished, well-developed patient. CARDIOVASCULAR: Regular rate and rhythm without murmurs, gallops, or rubs. RESPIRATORY: Breath sounds equal bilaterally. No accessory muscle use. ABDOMEN/GI: Abdomen soft, non-tender, bowel sounds present. incision: Clean, dry and intact. Fundus: Firm, non-tender at umbilicus. GENITOURINARY: Light to moderate bleeding. EXTREMITIES: No cyanosis or edema, non-tender, without signs of DVT. Medications and IVs Current Medications Medications (Trade) Dose Ordered Sig/Asher Route Start Time Stop Time Status Last Admin (Fioricet 325-50-40) 1 tab Q6H PRN PO 12/14/17 16:45 (Calcium Gluconate Inj) 1 gm UNSCH PRN IV PUSH 12/15/17 12:45 (Mylicon Chew) 80 mg QID PRN PO 12/16/17 09:15 (Tylenol) 650 mg Q6H PRN PO 12/16/17 09:15 (Motrin) 600 mg Q6H PRN PO 12/16/17 09:15 12/19/17 04:45 (Percocet 5-325 Mg) 1 tab Q4H PRN PO 12/16/17 09:15 12/19/17 04:46 (Percocet 5-325 Mg) 2 tab Q4H PRN PO 12/16/17 09:15 12/18/17 08:33 (Ethel-Colace) 2 tab Q12H PRN PO 12/16/17 09:15 12/18/17 08:33 (Ambien) 5 mg HS PRN PO 12/16/17 09:15 (Zofran Inj) 4 mg Q6H PRN IV PUSH 12/16/17 09:15 (Procardia Xl) 30 mg DAILY PO 12/16/17 12:30 12/19/17 07:18 (Oscal) 500 mg DAILY PO 12/17/17 09:00 12/18/17 08:31 (Trandate) 400 mg Q12H PO 12/17/17 17:00 12/19/17 04:46 (Tessalon) 100 mg TID PRN PO 12/17/17 13:15 12/17/17 17:55 (Mucinex Er) 600 mg BID PO 12/17/17 21:00 12/18/17 08:33 Assessment/Plan Problem List: (1) History of pre-eclampsia ICD Codes: Z87.59 - Personal history of other complications of , childbirth and the puerperium (2) Advanced maternal age in multigravida ICD Codes: O09.529 - Supervision of elderly multigravida, unspecified trimester (3) Gestational diabetes ICD Codes: O24.419 - Gestational diabetes mellitus in , unspecified control (4) History of delivery ICD Codes: Z98.891 - History of uterine scar from previous surgery Assessment and Plan Patient 42 yo AAF s/p RLTCS and BTL / myomectomy at 30w4d for PREC w/ severe features. 1) POD #3: AF, VSS, ouput appropriate, and hemoglobin noted, patient received 2 units prior to her surgery. Feeling well asymptomatic. Continue routine post operative care, anticipate discharge in the next 24 hrs. 2) GDM: check 2hr GTT at 6 weeks. 3) UDS + for bupenorphine, oxycodone, and hydromorphone on 12/06/17. Pending here. Consult CM. 4) PREC w/ severe features: s/p Mag x 24hrs, BPs mild range on Procardia XL 30mg qd and labetalol 400mg BID, Will need 1 wk FU for BP check s/p d/c. will increase labetolol to 600 mg po BID, procardia to 30 mg po BID Discharge Planning routine Attending Attestation pt seen by Tameka Mane MD Dec 19, 2017 08:36
[2017-12-19] MEDS ORDERED: OXYC1TAB63 PO (08:43)
[2017-12-19] MEDS ORDERED: LABE300T PO (08:43)
[2017-12-19] MEDS ORDERED: IBUP-232 PO (08:43)
[2017-12-19] MEDS ORDERED: NIFE30TA8 PO (08:43)
--- NOTE | 2017-12-19 08:43 | HHI.DCPOC ---
Discharge Care Plan Your Health Problems Are: Pelvic pain Report Symptoms to Your Doctor -Temperature above 100.5 degrees -Redness, of incision or excessive or foul smelling drainage -Unusual pain or calf pain -Increased vaginal bleeding -Painful or difficulty urinating -Feelings of extreme sadness or anxiety after 2 weeks Goals to Promote Your Health * To prevent worsening of your condition and complications * To maintain your health at the optimal level Directions to Meet Your Goals Take your medications as prescribed Follow your dietary instruction Follow activity as directed Ensure plenty of rest for recovery Drink fluids for hydration Keep your appointments as scheduled Take your immunizations and boosters as scheduled If your symptoms worsen call your PCP, if no PCP go to Urgent Care Center or Emergency Room Smoking is Dangerous to Your Health. Avoid second hand smoke Call the 24-hour crisis hotline for domestic abuse at Tameka Westfall MD Dec 19, 2017 08:43
[2017-12-19 09:00] VITALS: BP 142/87; PULSE 81
[2017-12-19] MEDS ORDERED: LABETALOL HCL 300 MG TAB PO SCH (09:00)
[2017-12-19] MEDS ORDERED: NIFEdipine 30 MG SUSTAINED RELEASE TAB PO SCH (09:00)
[2017-12-19] MEDS: guaiFENesin E.R. 600 MG TAB PO SCH (09:46)
[2017-12-19] MEDS: CALCIUM CARBONATE 1.25 GM (CA 500 MG) TAB PO SCH (09:46)
[2017-12-19] MEDS: DOCUSATE SODIUM 50 MG/SENNA 8.6 MG TAB PO PRN (12:26)
[2017-12-19 12:29] VITALS: BP 120/67; PULSE 86
--- NOTE | 2017-12-22 08:54 | MP ---
cc: ANNIE PULIDO MD DATE OF SURGERY 12/17/2017 PREOPERATIVE DIAGNOSIS 1. Intrauterine at 30 weeks. 2. Severe preeclampsia. 3. care. 4. Positive urine screen. 5. Undesired fertility. 6. Leiomyomatous uterus. POSTOPERATIVE DIAGNOSIS 1. Intrauterine at 30 weeks. 2. Severe preeclampsia. 3. care. 4. Positive urine screen. 5. Undesired fertility. 6. Leiomyomatous uterus. PROCEDURE PERFORMED 1. Repeat low transverse delivery. 2. Nina bilateral tubal ligation. 3. Myomectomy. INDICATION Worsening severe preeclampsia. ESTIMATED BLOOD LOSS 450 mL. URINE OUTPUT 200 mL. IV FLUIDS Two liters. ANESTHESIA Spinal. COMPLICATIONS None. COUNTS Correct x3. SPECIMEN Cord blood, placenta, bilateral tubal segments, fibroids. PREOPERATIVE ANTIBIOTICS Ancef two grams given IV pre incision. DVT PROPHYLAXIS SCDs bilateral extremities. DISPOSITION Stable to PACU, then to Labor&Delivery for magnesium. INTRAOPERATIVE FINDINGS Viable female infant with Apgars of 7 and 8 recurring positive pressure ventilation and taken to the nursery. Weight is pending. Bilateral ovaries and tubes within normal limits. Uterus with multiple 2 cm fibroids in all aspects of the uterus. A 4 cm left fundal fibroid. No adhesions noted. PROCEDURE IN DETAIL After reviewing the informed consent the patient was taken to the operating room where spinal epidural was performed. A Bullock catheter was already in place. SCDs were placed. The abdomen was prepped in a normal sterile fashion. A Pfannenstiel skin incision was made with a scalpel, carried down to the underlying layer of fascia with the Bovie. The fascia was incised in the midline and incision extended bilaterally. Heather clamps were used to elevate the fascia and the rectus muscles were dissected off sharply. The rectus muscles were in the midline. The peritoneum was entered bluntly. The incision was extended bluntly after noting it was free of adhesions. The bladder blade was then inserted. Aa low transverse uterine incision was made with the scalpel and extended with bandage scissors due to the thickness of the lower uterine segment. The head was guided to the hysterotomy with the surgeon's hand and while applying fundal pressure. Delayed cord clamp of 30 seconds was performed. The baby was handed off to the team. Cord blood was collected. The placenta was delivered with gentle cord traction and uterine massage. The uterus was then exteriorized. A large 4 cm fundal fibroid was noted and multiple less than 2 cm fibroids throughout all aspects of the uterus were noted. There were several fibroids that were protruding through the hysterotomy site. These were removed to ensure good approximation of the incision. The uterus was repaired in two layers with #1 chromic in a running lock fashion followed by an imbricating layer. The Lindrith tubal ligation was performed bilaterally. The tube was grasped with Christopher clamps and followed to its fimbriated end. An approximately 2 cm segment was double ligated and transected with Metzenbaum scissors. Good hemostasis was noted. Two ostia were noted bilaterally. The uterus was then returned to the abdomen. The hysterotomy looked to be hemostatic. The fascia was closed with #1 Vicryl in a running fashion. The subcutaneous tissue was irrigated and closed with interrupted 2-0 chromic. The skin was closed with 3-0 Monocryl in a subcuticular fashion. Annie Pulido MD PE/BASILIA /5:40 PM /8:34 AM
== END 2017-12-19 14:37 | disposition home or self-care (01) | DRG 766 ==
LOC: HOBED 09:51 → H2EA 10:52 → OBSVTOIN 12-16 03:40 → H1EA 12-17 09:00
PROVIDERS: ADMIT Obstetrics & Gynecology; ATTEND Obstetrics & Gynecology
PROC: 30233N1 Transfusion of Nonautologous Red Blood Cells into Peripheral Vein, Percutaneous Approach (ICD-10-PCS; 2017-12-15)
PROC: 10D00Z1 Extraction of Products of Conception, Low, Open Approach (ICD-10-PCS; principal; 2017-12-18)
PROC: 0UB70ZZ Excision of Bilateral Fallopian Tubes, Open Approach (ICD-10-PCS; 2017-12-18)
PROC: 0UB90ZZ Excision of Uterus, Open Approach (ICD-10-PCS; 2017-12-18)
DX: O14.14 Severe pre-eclampsia complicating childbirth (principal); O24.420 Gestational diabetes mellitus in childbirth, diet controlled; D25.9 Leiomyoma of uterus, unspecified; O34.211 Maternal care for low transverse scar from previous cesarean delivery; O34.13 Maternal care for benign tumor of corpus uteri, third trimester; O99.02 Anemia complicating childbirth; D64.9 Anemia, unspecified; Z30.2 Encounter for sterilization; Z37.0 Single live birth; Z3A.30 30 weeks gestation of pregnancy
CPT/HCPCS: 36430; 76816; 76819; 76820; 80053; 80307; 81001; 82570; 82948; 83036; 84157; 84550; 85025; 85027; 86850; 86900; 86901; 86920; 88302; 88305; 88307; 90686; 90715; 96372; 96374; 96376; G0378; G0481; J0131; J0690; J0702; J1756; J1815; J2270; J2274; J2590; J3010; J3475; J7120; P9016; Q2038

== ENCOUNTER 2018-05-05 23:29 | Observation (INO) | payer BC ==
[~2018-05-05 23:29] MED LIST: IBUP-232 PO; Iron PO; LABE300T PO; NIFE30TA8 PO; OXYC1TAB63 PO; Prenatal Vitamin PO
[2018-05-05 23:31] VITALS: BP 207/121; PULSE 81; RESP 18; TEMP 98.3; O2SAT 100
[2018-05-06] VITALS (11 sets, daily range): BP systolic 122–190; BP diastolic 69–106; PULSE 65–96; RESP 16–18; TEMP 98.1–98.7; O2SAT 98–99
[2018-05-06] MEDS ORDERED: SODIUM CHLORIDE 0.9% FLUSH 10 ML FLUSH IVF PRN (00:15)
[2018-05-06] MEDS ORDERED: LABETALOL HCL 100 MG/20 ML VIAL IV PUSH ONE (00:15)
[2018-05-06] MEDS ORDERED: SODIUM CHLOR 0.9% 1000 ML INJ 1,000 ML IV ONE (00:15)
--- NOTE | 2018-05-06 00:25 | PD ---
HPI Chief Complaint: Abnormal Results Time Seen by Provider: 00:15 Travel History International Travel<30 days: No Contact w/Intl Traveler<30days: No Traveled to known affect area: No History of Present Illness HPI 42-year-old female presents to the emergency department by report from home for evaluation of poorly controlled hypertension and headache. Patient states headache began slowly around 9 PM this evening and progressively worsened. Patient states headache was severe. Patient denies headache being sudden onset or thunderclap. Patient took ibuprofen and an extra dose of labetalol her blood pressure medication but did not seem to help the headache. Patient did not report any double vision or loss patient denies any new upper extremity lower extremity numbness tingling weakness but felt fatigued all over. states that she was briefly unresponsive on the bed so he called EMS to transfer the patient. According to upon their arrival she was awake to be assisted to a chair so they can carry her down the stairs as the EMS stretcher would not fit in the stairway to transport the patient by stretcher to the ambulance. No report of vomiting. Patient has had high blood pressures since the delivery of her child 6 months ago in November. Patient has family history of hypertension. Patient denies family history of migraine headache cerebral aneurysm. Patient also had history of gestational diabetes. Patient is unable to identify exacerbating or alleviating factors. [facility] [place] Past Medical History Narrative Medical Hypertension gestational diabetes; no tobacco use; nursing notes reviewed Diabetes: Yes (GESTATIONAL DIABETES) Patient Takes Glucophage: No Diminished Hearing: No ?: Not : 3 Para: 3 Social History Alcohol Use: No Tobacco Use: No Substance Use: No Allergies-Medications (Allergen,Severity, Reaction): Coded Allergies: No Known Drug Allergies (Verified Allergy, Unknown, 12/14/17) Reported Meds & Prescriptions Reported Meds & Active Scripts Active Labetalol (Labetalol HCl) 300 Mg Tab 600 Mg PO Q12HR 30 Days Review of Systems Except as stated in HPI: all other systems reviewed are Neg General / Constitutional: No: Fever, Chills Eyes: No: Diploplia, Blindness HENT: Positive: Headaches, No: Lightheadedness, Neck Pain Cardiovascular: No: Chest Pain or Discomfort, Palpitations Respiratory: No: Shortness of Breath Gastrointestinal: No: Vomiting, Abdominal Pain Genitourinary: No: Flank Pain Musculoskeletal: No: Myalgias, Arthralgias Skin: No Rash Neurologic: Positive: Weakness, Headache, No: Dizziness, Syncope, Focal Abnormalities, Coordination Problem, Change in Mentation, Slurred Speech, Paresthesia Psychiatric: Positive: Anxiety Endocrine: No: Heat Intolerance, Cold Intolerance Hematologic/Lymphatic: No: Easy Bruising Physical Exam Narrative GENERAL: Well-developed well-nourished female no acute distress no respiratory distress; GCS 15 SKIN: Warm and dry. HEAD: Atraumatic. Normocephalic. EYES: Pupils equal and round. No scleral icterus. No injection or drainage. ENT: No nasal bleeding or discharge. Mucous membranes pink and moist. NECK: Trachea midline. No JVD. CARDIOVASCULAR: Regular rate and rhythm. RESPIRATORY: No accessory muscle use. Clear to auscultation. Breath sounds equal bilaterally. GASTROINTESTINAL: Abdomen soft, non-tender, nondistended. Hepatic and splenic margins not palpable. MUSCULOSKELETAL: Extremities without clubbing, cyanosis, or edema. No obvious deformities. NEUROLOGICAL: Awake and alert. No obvious cranial nerve deficits. Motor grossly within normal limits. Five out of 5 muscle strength in the arms and legs. Sensory exam grossly intact as tested. DTRs 2+ and equal no clonus. No pronator drift. No limb ataxia. Normal speech. PSYCHIATRIC: Appropriate mood and affect; insight and judgment normal. Data Data Last Documented VS Vital Signs Date Time Temp Pulse Resp B/P (MAP) Pulse Ox O2 Delivery O2 Flow Rate FiO2 05/06/18 01:26 70 16 157/78 (104) 98 Room Air 05/05/18 23:31 98.3 Orders Orders Electrocardiogram (05/06/18 00:15) Ed Urine Pregnancytest Poc (05/06/18 00:15) Complete Blood Count With Diff (05/06/18 00:15) Comprehensive Metabolic Panel (05/06/18 00:15) Magnesium (Mg) (05/06/18 00:15) Troponin I (05/06/18 00:15) Act Partial Throm Time (Ptt) (05/06/18 00:15) Prothrombin Time / Inr (Pt) (05/06/18 00:15) Urinalysis - C+S If Indicated (05/06/18 00:15) Chest, Single Ap (05/06/18 00:15) Ct Brain W/O Iv Contrast(Rout) (05/06/18 00:15) Ecg Monitoring (05/06/18 00:15) Iv Access Insert/Monitor (05/06/18 00:15) Oximetry (05/06/18 00:15) Sodium Chloride 0.9% Flush (Ns Flush) (05/06/18 00:15) Sodium Chlor 0.9% 1000 Ml Inj (Ns 1000 M (05/06/18 00:15) Labetalol Inj (Trandate Inj) (05/06/18 00:15) Admit Order (Ed Use Only) (05/06/18 ) Horticultural Farmer / Telemetry [id number] (05/06/18 01:38) Diet Heart Healthy (05/06/18 Breakfast) Activity Oob With Assistance (05/06/18 01:38) Notify Dr: Other (05/06/18 01:38) Labs Laboratory Tests Test 05/06/18 00:26 White Blood Count 10.2 TH/MM3 Red Blood Count 4.40 MIL/MM3 Hemoglobin 11.1 GM/DL Hematocrit 35.3 % Mean Corpuscular Volume 80.2 FL Mean Corpuscular Hemoglobin 25.2 PG Mean Corpuscular Hemoglobin Concent 31.5 % Red Cell Distribution Width 17.0 % Platelet Count 364 TH/MM3 Mean Platelet Volume 9.5 FL CBC Comment AUTO DIFF Differential Total Cells Counted 100 Neutrophils % (Manual) 46 % Lymphocytes % 44 % Monocytes % 9 % Eosinophils % 1 % Neutrophils # (Manual) 4.7 TH/MM3 Differential Comment FINAL DIFF MANUAL Platelet Estimate NORMAL Platelet Morphology Comment NORMAL Urine Color LIGHT-YELLOW Urine Turbidity CLEAR Urine pH 7.5 Urine Specific [place] 1.011 Urine Protein NEG mg/dL Urine Glucose (UA) NEG mg/dL Urine Ketones NEG mg/dL Urine Occult Blood NEG Urine Nitrite NEG Urine Bilirubin NEG Urine Urobilinogen LESS THAN 2.0 MG/DL Urine Leukocyte Esterase NEG Urine WBC 1 /hpf Urine Squamous Epithelial Cells 2 /hpf Microscopic Urinalysis Comment CULT NOT INDICATED Blood Urea Nitrogen 11 MG/DL Creatinine 0.95 MG/DL Random Glucose 111 MG/DL Total Protein 7.6 GM/DL Albumin 3.0 GM/DL Calcium Level 8.9 MG/DL Magnesium Level 2.0 MG/DL Alkaline Phosphatase 85 U/L Aspartate Amino Transf (AST/SGOT) 17 U/L Alanine Aminotransferase (ALT/SGPT) 15 U/L Total Bilirubin 0.1 MG/DL Sodium Level 136 MEQ/L Potassium Level 4.1 MEQ/L Chloride Level 108 MEQ/L Carbon Dioxide Level 17.2 MEQ/L Anion Gap 11 MEQ/L Estimat Glomerular Filtration Rate 65 ML/MIN Troponin I LESS THAN 0.02 NG/ML MDM Medical Decision Making Medical Screen Exam Complete: Yes Emergency Medical Condition: Yes Medical Record Reviewed: Yes Interpretation(s) EKG: Normal sinus rhythm rate [address] elevation or injury pattern change noted Last Impressions Head CT 05/06/1814 Signed Impressions: CONCLUSION: No acute intracranial findings. Chest X-Ray 05/06/1814 Signed Impressions: CONCLUSION: No acute cardiopulmonary disease identified. CBC & BMP Diagram 05/06/18 00:26 Total Protein 7.6, Albumin 3.0 L, Calcium Level 8.9, Magnesium Level 2.0, Alkaline Phosphatase 85, Aspartate Amino Transf (AST/SGOT) 17, Alanine Aminotransferase (ALT/SGPT) 15, Total Bilirubin 0.1 L Vital Signs Date Time Temp Pulse Resp B/P (MAP) Pulse Ox O2 Delivery O2 Flow Rate FiO2 05/06/18 01:26 70 16 157/78 (104) 98 Room Air 05/06/18 00:46 78 18 162/91 (114) 98 Room Air 05/06/18 00:27 174/101 (125) 05/06/18 00:27 98 Room Air 05/06/18 00:10 80 18 190/106 (134) 98 Room Air 05/05/18 23:41 Room Air 05/05/18 23:31 98.3 81 18 207/121 (149) 100 Differential Diagnosis Hypertensive urgency, hypertensive crisis, cephalgia, migraine, ICH, AVM, aneurysm, ACS Narrative Course Patient placed on cardiac exercise specialist with continuous pulse oximetry IV access obtained specimens collected and sent for resulting CT brain noncontrast reveals no intracranial abnormality EKG is sinus rhythm with no acute abnormality Patient administer labetalol 20 mg IV BP improved with last blood pressure at 12:46 AM. [id number] hCG negative Patient's case discussed with on-call medicine physician Dr. Head for admission for syncope and hypertensive urgency/crisis Critical Care Narrative Aggregate critical care time was 35 minutes. Time to perform other separately billable procedures was not included in the critical care time. My time did not include minutes spent treating any other patients simultaneously or on activities that did not directly contribute to the patient's treatment. The services I provided to this patient were to treat and/or prevent clinically significant deterioration that could result in: Stroke, aortic dissection, intracranial bleed, arrhythmia, I provided critical care services requiring my management, as noted below: Chart data review, documentation time, medication orders and management, vital sign assessments/reviewing monitor data, ordering and reviewing lab tests, ordering and interpreting/reviewing x-rays and diagnostic studies, care of the patient and discussion of the patient with the admitting physicians. Physician Communication Physician Communication discussed with Dr Head --for admission Diagnosis Primary Impression: Syncope Additional Impression: Hypertensive crisis Admitting Information Admitting Physician Requests: Admit Lula Haro MD May 06, 2018 00:25
[2018-05-06 00:51] LABS: BILIRUBIN, URINE NEG (NEG); BLOOD, URINE NEG (NEG); GLUCOSE,URINE NEG (NEG); KETONE, URINE NEG (NEG); NITRITE,URINE NEG (NEG); PH, URINE 7.5 (5.0-8.5); SQUAMOUS EPITHELIAL CELL URINE 2 /hpf (0-5); URINE COLOR LIGHT-YELLOW (YELLW/STRAW); URINE LEUKOCYTE ESTERASE NEG (NEG)
[2018-05-06 00:56] LABS: HEMATOCRIT 35.3 % (35.0-46.0); HEMOGLOBIN 11.1 GM/DL (11.6-15.3); MEAN CELL VOLUME 80.2 FL (80.0-100.0); MEAN CORPUSCULAR HEMOGLOBIN 25.2 PG (27.0-34.0); MEAN CORPUSCULAR HGB CONC 31.5 % (32.0-36.0); MEAN PLATELET VOLUME 9.5 FL (7.0-11.0); PLATELET COUNT 364 TH/MM3 (150-450); WHITE BLOOD COUNT 10.2 TH/MM3 (4.0-11.0)
[2018-05-06 01:00] LABS: AST (GOT) 17 U/L (15-37); BICARBONATE 17.2 MEQ/L (21.0-32.0); BLOOD UREA NITROGEN 11 MG/DL (7-18); CALCIUM 8.9 MG/DL (8.5-10.1); CHLORIDE 108 MEQ/L (98-107); CREATININE 0.95 MG/DL (0.50-1.00); GLOMERULAR FILTRATION RATE 65 ML/MIN (>89); GLUCOSE,RANDOM 111 MG/DL (74-106); SODIUM (NA) 136 MEQ/L (136-145)
[2018-05-06 01:03] LABS: ALKALINE PHOSPHATASE 85 U/L (45-117); ALT (GPT) 15 U/L (10-53); TOTAL BILIRUBIN ADULT 0.1 MG/DL (0.2-1.0); TOTAL PROTEIN 7.6 GM/DL (6.4-8.2); TROPONIN I LESS THAN 0.02 NG/ML (0.02-0.05)
--- NOTE | 2018-05-06 01:06 | RADRPT ---
EXAM DATE: 05/06/2018 1:01 AM EDT AGE/SEX: 42 years / Female INDICATIONS: Short of breath, cough. CLINICAL DATA: This is the patient's initial encounter. Patient reports that signs and symptoms have been present for 1 day and indicates a pain score of 3/10. MEDICAL/SURGICAL HISTORY: None. None. COMPARISON: No prior exams available for comparison. FINDINGS: Single AP view of the chest. The lungs are clear. Cardiomediastinal silhouette within nor mal limits. No evidence of pleural effusion or pneumothorax. CONCLUSION: No acute cardiopulmonary disease identified. Electronically signed by: Alberto Blue MD 05/06/2018 1:04 AM EDT
--- NOTE | 2018-05-06 01:08 | RADRPT ---
EXAM DATE: 05/06/2018 12:57 AM EDT AGE/SEX: 42 years / Female INDICATIONS: Cephalgia. CLINICAL DATA: This is the patient's initial encounter. Patient reports that signs and symptoms have been present for 1 day and indicates a pain score of 3/10. MEDICAL/SURGICAL HISTORY: None. None. RADIATION DOSE: 56.35 CTDI (mGy) COMPARISON: No prior exams available for comparison. TECHNIQUE: CT of the head without contrast. Using automated exposure control and adjustment of the mA and/or kV according to patient size, radiation dose was kept as low as reasonably achievable to ob tain optimal diagnostic quality images. FINDINGS: Cerebrum: The ventricles are normal for age. No evidence of midline shift, mass lesion, hemorrhage or acute infarction. No extraaxial fluid collections are seen. Posterior Fossa: The cerebellum and brainstem are intact. The 4th ventricle is midline. The cerebe llopontine angle is unremarkable. Extracranial: The visualized portion of the orbits is intact. Skull: The calvaria is intact. No evidence of skull fracture. CONCLUSION: No acute intracranial findings. Electronically signed by: Alberto Blue MD 05/06/2018 1:07 AM EDT
[2018-05-06 01:34] LABS: LYMPHOCYTES 44 % (9-44); MONOCYTES 9 % (0-8); NEUTROPHIL # MANUAL DIFF 4.7 TH/MM3 (1.8-7.7); POLYS (SEG NEUTROPHILS) 46 % (16-70)
[2018-05-06] MEDS ORDERED: SODIUM CHLOR 0.9% 1000 ML INJ 1,000 ML IV SCH (02:17)
[2018-05-06] MEDS ORDERED: SODIUM CHLORIDE 0.9% FLUSH 10 ML FLUSH IV FLUSH PRN (02:30)
[2018-05-06] MEDS ORDERED: LABETALOL HCL 100 MG/20 ML VIAL IV PUSH PRN (02:30)
--- NOTE | 2018-05-06 04:37 | HHI.HP ---
[facility] No Primary Care Physician Admission Diagnosis syncope; htn crisis/urgency Diagnoses: Travel History International Travel<30 Days: No Contact w/Intl Traveler <30 Da: No Traveled to Known Affected Are: No History of Present Illness 42-year-old female with a past medical history significant for hypertension and recent preeclampsia presents to the emergency department for evaluation of high blood pressure. The patient was taking her blood pressure at home and states that it was somewhere in the 200s/100s. She endorses an accompanying headache and blurry vision. The patient's reports that while she was lying down she became unresponsive for approximately 5 minutes. He states she was breathing and her heart was beating the entire time but he could not wake her up. It was at that time that her called EMS who brought her to the emergency department for further evaluation. Patient denies any chest pain or shortness of breath. No abdominal pain. No nausea/vomiting/diarrhea. No lateralizing signs/symptoms. No fever/chills. Review of Systems Except as stated in HPI: all other systems reviewed are Neg Past Family Social History Past Medical History Hypertension History of preeclampsia Past Surgical History Reported Medications Reported Meds & Active Scripts Active Labetalol (Labetalol HCl) 300 Mg Tab 600 Mg PO Q12HR 30 Days Allergies: Coded Allergies: No Known Drug Allergies (Verified Allergy, Unknown, 12/14/17) Family History Both parents with diabetes mellitus Social History Negative for alcohol, tobacco and illicit drugs Physical Exam Vital Signs Vital Signs Date Time Temp Pulse Resp B/P (MAP) Pulse Ox O2 Delivery O2 Flow Rate FiO2 05/06/18 04:03 98.1 74 16 122/69 (86) 99 05/06/18 02:33 05/06/18 02:23 87 18 155/70 (98) 99 Room Air 05/06/18 01:26 70 16 157/78 (104) 98 Room Air 05/06/18 00:46 78 18 162/91 (114) 98 Room Air 05/06/18 00:27 174/101 (125) 05/06/18 00:27 98 Room Air 05/06/18 00:10 80 18 190/106 (134) 98 Room Air 05/05/18 23:41 Room Air 05/05/18 23:31 98.3 81 18 207/121 (149) 100 Physical Exam GENERAL: -Hungarian female lying in bed SKIN: No rashes, ecchymoses or lesions. Cool and dry. HEAD: Atraumatic. Normocephalic. No temporal or scalp tenderness. EYES: Pupils equal round and reactive. Extraocular motions intact. No scleral icterus. No injection or drainage. ENT: Nose without bleeding, purulent drainage or septal hematoma. Throat without erythema, tonsillar hypertrophy or exudate. Uvula midline. Airway patent. NECK: Trachea midline. No JVD or lymphadenopathy. Supple, nontender, no meningeal signs. CARDIOVASCULAR: Regular rate and rhythm without murmurs, gallops, or rubs. RESPIRATORY: Clear to auscultation. Breath sounds equal bilaterally. No wheezes , rales, or rhonchi. GASTROINTESTINAL: Abdomen soft, non-tender, nondistended. No hepato-splenomegaly , or palpable masses. No guarding. MUSCULOSKELETAL: Extremities without clubbing, cyanosis, or edema. No joint tenderness, effusion, or edema noted. No calf tenderness. NEUROLOGICAL: Awake and alert. Cranial nerves II through XII intact. Motor and sensory grossly within normal limits. Normal speech. Laboratory Laboratory Tests Test 05/06/18 00:26 White Blood Count 10.2 Red Blood Count 4.40 Hemoglobin 11.1 Hematocrit 35.3 Mean Corpuscular Volume 80.2 Mean Corpuscular Hemoglobin 25.2 Mean Corpuscular Hemoglobin Concent 31.5 Red Cell Distribution Width 17.0 Platelet Count 364 Mean Platelet Volume 9.5 CBC Comment AUTO DIFF Differential Total Cells Counted 100 Neutrophils % (Manual) 46 Lymphocytes % 44 Monocytes % 9 Eosinophils % 1 Neutrophils # (Manual) 4.7 Differential Comment FINAL DIFF MANUAL Platelet Estimate NORMAL Platelet Morphology Comment NORMAL Urine Color LIGHT-YELLOW Urine Turbidity CLEAR Urine pH 7.5 Urine Specific [place] 1.011 Urine Protein NEG Urine Glucose (UA) NEG Urine Ketones NEG Urine Occult Blood NEG Urine Nitrite NEG Urine Bilirubin NEG Urine Urobilinogen LESS THAN 2.0 Urine Leukocyte Esterase NEG Urine WBC 1 Urine Squamous Epithelial Cells 2 Microscopic Urinalysis Comment CULT NOT INDICATED Blood Urea Nitrogen 11 Creatinine 0.95 Random Glucose 111 Total Protein 7.6 Albumin 3.0 Calcium Level 8.9 Magnesium Level 2.0 Alkaline Phosphatase 85 Aspartate Amino Transf (AST/SGOT) 17 Alanine Aminotransferase (ALT/SGPT) 15 Total Bilirubin 0.1 Sodium Level 136 Potassium Level 4.1 Chloride Level 108 Carbon Dioxide Level 17.2 Anion Gap 11 Estimat Glomerular Filtration Rate 65 Troponin I LESS THAN 0.02 Result Diagram: 05/06/18 0026 05/06/18 0026 Caprini VTE Risk Assessment Caprini VTE Risk Assessment: No/Low Risk (score <= 1) Caprini Risk Assessment Model Point Value = 1 Point Value = 2 Point Value = 3 Point Value = 5 Age 41-60 Minor surgery BMI > 25 kg/m2 Swollen legs Varicose veins or History of unexplained or recurrent spontaneous Oral contraceptives or hormone replacement Sepsis (< 1 month) Serious lung disease, including pneumonia (< 1 month) Abnormal pulmonary function Acute myocardial infarction Congestive heart failure (< 1 month) History of inflammatory bowel disease Medical patient at bed rest Age 61-74 Arthroscopic surgery Major open surgery (> 45 min) Laparoscopic surgery (> 45 min) Malignancy Confined to bed (> 72 hours) Immobilizing plaster cast Central venous access Age >= 75 History of VTE Family history of VTE Factor V Leiden Prothrombin [id number] Lupus anticoagulant Anticardiolipin antibodies Elevated serum homocysteine Heparin-induced thrombocytopenia Other congenital or acquired thrombophilia Stroke (< 1 month) Elective arthroplasty Hip, pelvis, or leg fracture Acute spinal cord injury (< 1 month) Prophylaxis Regimen Total Risk Factor Score Risk Level Prophylaxis Regimen 0-1 Low Early ambulation 2 Moderate Order ONE of the following: *Sequential Compression Device (SCD) *Heparin 5000 units SQ BID 3-4 Higher Order ONE of the following medications: *Heparin 5000 units SQ TID *Enoxaparin/Lovenox 40 mg SQ daily (WT < 150 kg, CrCl > 30 mL/min) *Enoxaparin/Lovenox 30 mg SQ daily (WT < 150 kg, CrCl > 10-29 mL/min) *Enoxaparin/Lovenox 30 mg SQ BID (WT < 150 kg, CrCl > 30 mL/min) AND/OR *Sequential Compression Device (SCD) 5 or more Highest Order ONE of the following medications: *Heparin 5000 units SQ TID (Preferred with Epidurals) *Enoxaparin/Lovenox 40 mg SQ daily (WT < 150 kg, CrCl > 30 mL/min) *Enoxaparin/Lovenox 30 mg SQ daily (WT < 150 kg, CrCl > 10-29 mL/min) *Enoxaparin/Lovenox 30 mg SQ BID (WT < 150 kg, CrCl > 30 mL/min) AND *Sequential Compression Device (SCD) Assessment and Plan Assessment and Plan Assessment/plan: 1. Hypertensive crisis/hypertension Resolved As needed IV labetalol Continue home p.o. labetalol 2. ? Syncope CT head negative for acute process Patient became unresponsive while lying down Orthostatic vital signs Telemetry FEN Heart healthy diet Electrolytes: Monitor and replete as needed More Head MD May 06, 2018 04:37
[2018-05-06] MEDS ORDERED: ENALAPRILAT 2.5 MG/2 ML VIAL IV PUSH PRN (06:45)
[2018-05-06] MEDS ORDERED: LABETALOL HCL 300 MG TAB PO SCH (09:00)
[2018-05-06] MEDS ORDERED: SODIUM CHLORIDE 0.9% FLUSH 10 ML FLUSH IV FLUSH SCH (09:00)
[2018-05-06] MEDS ORDERED: LABE300T PO (15:50)
[2018-05-06] MEDS ORDERED: HYDR12.57 PO (15:58)
--- NOTE | 2018-05-06 18:10 | EKG ---
Date Performed: 05/06/2018 Time Performed: 00:03:41 PTAGE: 42 years EKG: Sinus rhythm NORMAL ECG NO PREVIOUS TRACING DOCTOR: Marsha Joshi Interpretating Date/Time 05/06/2018 18:09:36
== END 2018-05-06 16:38 | disposition home or self-care (01) ==
LOC: NEPC 23:29 → NEDA 05-06 01:40 → NEPFCDU 05-06 03:25
PROVIDERS: ADMIT Internal Medicine; ATTEND Internal Medicine
DX: I16.9 Hypertensive crisis, unspecified (principal); I10 Essential (primary) hypertension; R55 Syncope and collapse; Z86.32 Personal history of gestational diabetes; Z83.3 Family history of diabetes mellitus; Z82.49 Family history of ischemic heart disease and other diseases of the circulatory system
CPT/HCPCS: 70450; 71045; 80053; 81001; 83735; 84484; 84703; 85007; 85027; 85610; 85730; 93005; 96361; 96374; 99291; G0378; J7030